=== PATIENT | male | born 1980 | race Caucasian/White ===

== ENCOUNTER 2017-07-18 01:39 | Emergency (ER) | payer OTHER ==
[~2017-07-18] VITALS: Ht 182.9 cm; Wt 83.9 kg
--- NOTE | 2017-07-18 02:15 | NUR ---
to bed 3 ambulatory c/o abdominal pain with n/v/d x6 hrs. pt aaox4 no acute distress noted, resp even and unlabored. er md at bedside to eval pt with orders received.
[2017-07-18] MEDS ORDERED: ONDANSETRON HCL/PF 4 MG/2 ML VIAL IVP ONE (02:30)
[2017-07-18] MEDS ORDERED: ONDANSETRON HCL/PF 4 MG/2 ML VIAL ONE (02:32)
--- NOTE | 2017-07-18 02:36 | NUR ---
rn at bedside to medicate pt.
[2017-07-18 02:37] LABS: BASOPHILS # (AUTO) 0.1 /CMM (0.0-0.2); BASOPHILS % (AUTO) 1.2 % (0.0-2.0); EOSINOPHILS % (AUTO) 0.3 % (0.0-6.0); HEMATOCRIT 35 % (39-51); HEMOGLOBIN 11.2 g/dL (13.5-17.5); LYMPHOCYTES # (AUTO) 1.9 /CMM (0.8-4.8); LYMPHOCYTES % (AUTO) 22.6 % (20.0-44.0); MEAN CORPUSCULAR HEMOGLOBIN 25 PG (26.0-33.0); MEAN CORPUSCULAR HGB CONC 32 g/dl (31.0-36.0); MEAN CORPUSCULAR VOLUME 78 fL (80-96); MONOCYTES # (AUTO) 0.9 /CMM (0.1-1.30); NEUTROPHILS # (AUTO) 5.6 /CMM (1.8-8.9); NEUTROPHILS % (AUTO) 64.9 % (43.0-81.0); PLATELET COUNT (AUTO) 333 /CMM (150-450); RDW COEFFICIENT OF VARIATION 20.9 (11.5-15.0); RED BLOOD CELL COUNT(AUTO) 4.47 MIL/uL (4.5-6.0); WHITE BLOOD COUNT (AUTO) 8.6 K/uL (4.3-11.0)
[2017-07-18] MEDS ORDERED: METOCLOPRAMIDE HCL 10 MG/2 ML VIAL ONE (02:47)
--- NOTE | 2017-07-18 02:47 | NUR ---
pt still c/o nausea, er md made aware with orders received.
[2017-07-18 02:48] LABS: CALCIUM, SERUM 9.4 mg/dL (8.5-10.1); POTASSIUM 3.2 mmol/L (3.5-5.1)
--- NOTE | 2017-07-18 02:48 | NUR ---
rn at bedside to medicate pt.
--- NOTE | 2017-07-18 02:50 | NUR ---
pt transported to radiology for ct abd/pelvis.
[2017-07-18 02:53] LABS: ALBUMIN 4.7 g/dL (3.4-5.0); BILIRUBIN,DIRECT 0.2 mg/dL (0.0-0.2); BILIRUBIN,TOTAL 0.7 mg/dL (0.2-1.0); TOTAL PROTEIN, SERUM 9.7 g/dL (6.4-8.2)
[2017-07-18] MEDS ORDERED: METOCLOPRAMIDE HCL 10 MG/2 ML VIAL IV ONE (03:00)
[2017-07-18] MEDS ORDERED: POTASSIUM CL. PREMIX PERIPHER. 50 ML IV SCH (03:00)
[2017-07-18] MEDS ORDERED: IV NS 0.9% 1,000 ML BAG IV ONE (03:00)
[2017-07-18] MEDS ORDERED: LORAZEPAM INJ 2 MG/ML VIAL ONE (03:27)
[2017-07-18] MEDS ORDERED: LIDOCAINE VISCOUS 2% UD 15 ML UDC ONE (03:27)
[2017-07-18] MEDS ORDERED: ONDANSETRON HCL/PF - ER 4 MG/2 ML VIAL IV ONE (04:00)
[2017-07-18] MEDS ORDERED: LORAZEPAM INJ 2 MG/ML VIAL IV ONE (04:00)
[2017-07-18] MEDS ORDERED: POTASSIUM CHLORIDE 20 MEQ TAB.PRT.SR PO ONE (04:00)
[2017-07-18 05:06] VITALS: BP 160/106
--- NOTE | 2017-07-18 05:06 | NUR ---
Patient discharged to home in stable condition. Written and verbal after care instructions given. Patient verbalizes understanding of instruction.IV removed. Catheter intact and site benign. Pressure and 4x4 applied to site. No bleeding noted. pt ambulatory with a steady gait VITAL SIGNS WITHIN NORMAL LIMITS.
== END 2017-07-18 05:06 | disposition home or self-care (01) ==
LOC: ER 01:42
DX: R10.84 Generalized abdominal pain (principal); D64.9 Anemia, unspecified; E87.6 Hypokalemia; F10.10 Alcohol abuse, uncomplicated; F17.210 Nicotine dependence, cigarettes, uncomplicated; F31.9 Bipolar disorder, unspecified; I10 Essential (primary) hypertension; K59.00 Constipation, unspecified; K85.90 Acute pancreatitis without necrosis or infection, unspecified
CPT/HCPCS: 36415; 74176; 80048; 80076; 83690; 85025; 86850; 96361; 96374; 96375; 99285; A4606; G0480; J2060; J2405 ×2; J2765; J7030; Z7610

== ENCOUNTER 2017-07-18 15:00 | Emergency (ER) | payer OTHER ==
[~2017-07-18] VITALS: Ht 182.9 cm; Wt 83.9 kg
[2017-07-18] MEDS ORDERED: METOCLOPRAMIDE HCL 10 MG/2 ML VIAL IV ONE (16:30)
[2017-07-18] MEDS ORDERED: FAMOTIDINE/PF INJ 20 MG/2 ML VIAL IV ONE ×2 (16:30→16:49)
[2017-07-18] MEDS ORDERED: IV NS 0.9% 1,000 ML BAG IV ONE ×2 (16:30→17:30)
[2017-07-18] MEDS ORDERED: METOCLOPRAMIDE HCL 10 MG/2 ML VIAL ONE (16:49)
[2017-07-18 17:02] LABS: ALBUMIN 4.4 g/dL (3.4-5.0); BILIRUBIN,DIRECT 0.2 mg/dL (0.0-0.2); BILIRUBIN,TOTAL 1.2 mg/dL (0.2-1.0); CALCIUM, SERUM 9.9 mg/dL (8.5-10.1); CREATININE 0.9 mg/dL (0.6-1.3); HEMATOCRIT 33 % (39-51); HEMOGLOBIN 10.6 g/dL (13.5-17.5); MEAN CORPUSCULAR VOLUME 78 fL (80-96); POTASSIUM 3.4 mmol/L (3.5-5.1); RED BLOOD CELL COUNT(AUTO) 4.18 MIL/uL (4.5-6.0); TOTAL PROTEIN, SERUM 9.2 g/dL (6.4-8.2); WHITE BLOOD COUNT (AUTO) 7.3 K/uL (4.3-11.0)
[2017-07-18 17:03] LABS: BASOPHILS # (AUTO) 0.3 /CMM (0.0-0.2); BASOPHILS % (AUTO) 4.6 % (0.0-2.0); EOSINOPHILS % (AUTO) 0.2 % (0.0-6.0); LYMPHOCYTES % (AUTO) 13.8 % (20.0-44.0); MEAN CORPUSCULAR HEMOGLOBIN 26 PG (26.0-33.0); MEAN CORPUSCULAR HGB CONC 33 g/dl (31.0-36.0); MONOCYTES # (AUTO) 1.2 /CMM (0.1-1.30); NEUTROPHILS # (AUTO) 4.8 /CMM (1.8-8.9); NEUTROPHILS % (AUTO) 64.4 % (43.0-81.0); PLATELET COUNT (AUTO) 155 /CMM (150-450); RDW COEFFICIENT OF VARIATION 19.5 (11.5-15.0)
[2017-07-18 17:55] LABS: EOSINOPHILS % (MANUAL) 1 % (0-4); LYMPHOCYTES % (MANUAL) 13 % (16-48); MONOCYTES % (MANUAL) 6 % (0-11.0); NEUTROPHILS % (MANUAL) 80 (42-76)
[2017-07-18 18:10] VITALS: BP 124/62
[2017-07-18] MEDS ORDERED: PROMETHAZINE HCL 25 MG/ML AMPUL ONE (18:16)
== END 2017-07-18 18:11 | disposition home or self-care (01) ==
LOC: ER 15:07
DX: R11.2 Nausea with vomiting, unspecified (principal); F17.210 Nicotine dependence, cigarettes, uncomplicated; F31.9 Bipolar disorder, unspecified; I10 Essential (primary) hypertension
CPT/HCPCS: 36415; 80048; 80076; 83690; 85025; 96361; 96374; 96375; 99284; 99406; A4606; J2550; J2765; J3490; J7030 ×2; Z7610

== ENCOUNTER 2017-07-26 06:11 | Emergency (ER) | payer OTHER ==
[~2017-07-26] VITALS: Ht 182.9 cm; Wt 72.6 kg
--- NOTE | 2017-07-26 06:15 | NUR ---
TO BED 2 BIB PARAMEDICS C/O ABD PAIN S/P DRINKING ALCOHOL. PT AAOX4 NO ACUTE DISTRESS NOTED, RESP EVEN AND UNLABORED. PENDING ER MD MARIE.
[2017-07-26] MEDS ORDERED: ONDANSETRON HCL/PF 4 MG/2 ML VIAL IVP ONE (06:30)
[2017-07-26] MEDS ORDERED: Folic acid 1 MG in IV D5W 50 ML IV SCH (06:30)
[2017-07-26] MEDS ORDERED: Thiamine 100 MG in IV D5W 50 ML IV SCH (06:30)
[2017-07-26] MEDS ORDERED: MISCELLANEOUS MED 1 EA EA XX ONE (06:30)
[2017-07-26] MEDS ORDERED: FAMOTIDINE/PF INJ 20 MG/2 ML VIAL IV ONE ×2 (06:30→07:08)
[2017-07-26] MEDS ORDERED: IV NS 0.9% 1,000 ML BAG IV ONE (06:30)
--- NOTE | 2017-07-26 06:50 | NUR ---
HEELER MACHINE AT BEDSIDE FOR BLOOD DRAW.
[2017-07-26] MEDS ORDERED: ONDANSETRON HCL/PF 4 MG/2 ML VIAL ONE (07:08)
--- NOTE | 2017-07-26 07:09 | NUR ---
RN AT BEDSIDE TO MEDICATE PT.
--- NOTE | 2017-07-26 07:19 | NUR ---
REPORT GIVEN TO AM SHIFT RK MALDONADO.
[2017-07-26 07:47] LABS: BASOPHILS # (AUTO) 0.1 /CMM (0.0-0.2); BASOPHILS % (AUTO) 0.8 % (0.0-2.0); EOSINOPHILS % (AUTO) 0.2 % (0.0-6.0); HEMATOCRIT 35 % (39-51); HEMOGLOBIN 11.2 g/dL (13.5-17.5); LYMPHOCYTES # (AUTO) 1.8 /CMM (0.8-4.8); LYMPHOCYTES % (AUTO) 28.6 % (20.0-44.0); MEAN CORPUSCULAR HEMOGLOBIN 25 PG (26.0-33.0); MEAN CORPUSCULAR HGB CONC 33 g/dl (31.0-36.0); MEAN CORPUSCULAR VOLUME 77 fL (80-96); MONOCYTES # (AUTO) 0.7 /CMM (0.1-1.30); MONOCYTES % (AUTO) 10.9 % (2.0-12.0); NEUTROPHILS # (AUTO) 3.8 /CMM (1.8-8.9); NEUTROPHILS % (AUTO) 59.5 % (43.0-81.0); PLATELET COUNT (AUTO) 290 /CMM (150-450); RED BLOOD CELL COUNT(AUTO) 4.49 MIL/uL (4.5-6.0); WHITE BLOOD COUNT (AUTO) 6.4 K/uL (4.3-11.0)
[2017-07-26 07:54] LABS: CALCIUM, SERUM 8.3 mg/dL (8.5-10.1); CARBON DIOXIDE 21 mmol/L (21-32); CHLORIDE 101 mmol/L (98-107); CREATININE 0.9 mg/dL (0.6-1.3); GLUCOSE 107 mg/dL (74-106); POTASSIUM 3.3 mmol/L (3.5-5.1); SODIUM SERUM 141 mmol/L (136-145); UREA NITROGEN, BLOOD 9 mg/dL (7-18)
[2017-07-26 07:59] LABS: ALANINE AMINOTRANSFERASE 73 U/L (12-78); ALBUMIN 3.8 g/dL (3.4-5.0); ALKALINE PHOSPHATASE 117 U/L (46-116); ASPARTATE AMINOTRANSFERASE 122 U/L (15-37); BILIRUBIN,TOTAL 0.4 mg/dL (0.2-1.0); TOTAL PROTEIN, SERUM 8.6 g/dL (6.4-8.2)
[2017-07-26 08:03] LABS: TROPONIN I < 0.017 ng/mL (0.00-0.056)
[2017-07-26 08:06] LABS: INR 1.04 (0.87-1.13); PROTHROMBIN TIME 10.8 SECS (9.5-12.7)
--- NOTE | 2017-07-26 09:08 | NUR ---
VERBAL ORDER RECEIVED FROM DR. DHALIWAL FOR ZOFRAN 4MG IVP. WILL PUT ORDERS ONCE DONE WITH PROCEDURE.
--- NOTE | 2017-07-26 12:40 | NUR ---
IV removed. Catheter intact and site benign. Pressure and 4x4 applied to site. No bleeding noted.
--- NOTE | 2017-07-26 12:53 | NUR ---
Patient discharged to home in stable condition. Written and verbal after care instructions given. Patient verbalizes understanding of instruction.
[2017-07-26 12:54] VITALS: BP 127/91
== END 2017-07-26 13:00 | disposition home or self-care (01) ==
LOC: ER 06:14
DX: R07.89 Other chest pain (principal); F10.129 Alcohol abuse with intoxication, unspecified; I10 Essential (primary) hypertension; F17.210 Nicotine dependence, cigarettes, uncomplicated; F31.9 Bipolar disorder, unspecified
CPT/HCPCS: 36415; 71010; 80048; 80076; 84484 ×2; 85025; 85730; 93005; 96365; 96368; 96375; 99285; A4606; G0480; J2405; J3411; J3490 ×2; J7060 ×2; Z7610

== ENCOUNTER 2017-07-27 23:22 | Emergency (ER) | payer OTHER ==
[~2017-07-27] VITALS: Ht 182.9 cm; Wt 83.9 kg
[2017-07-27 23:30] VITALS: BP 125/91
[2017-07-27] MEDS ORDERED: METOCLOPRAMIDE HCL 10 MG TABLET ONE (23:43)
[2017-07-28] MEDS ORDERED: METOCLOPRAMIDE HCL 10 MG TABLET PO ONE
--- NOTE | 2017-07-28 00:27 | NUR ---
Dr Briones at bedside talking to patient. Then patient said he "wants to leave now". Patient left facity with steady gait, vss.
== END 2017-07-28 00:29 | disposition home or self-care (01) ==
LOC: ER 23:22
DX: R10.84 Generalized abdominal pain (principal); I10 Essential (primary) hypertension; F31.9 Bipolar disorder, unspecified; F17.210 Nicotine dependence, cigarettes, uncomplicated; F10.10 Alcohol abuse, uncomplicated
CPT/HCPCS: 74000; 99283; A4606; J8597; Z7610

== ENCOUNTER 2018-01-14 07:07 | Inpatient (IN) | payer OTHER ==
[~2018-01-14] VITALS: Ht 182.9 cm; Wt 83.9 kg
--- NOTE | 2018-01-14 07:08 | NUR ---
BB 78 FROM STREETS: ABD PAIN X 2 DAYS. ETOH+
[2018-01-14] MEDS ORDERED: FAMOTIDINE/PF INJ 20 MG/2 ML VIAL IV ONE ×2 (07:21→07:49)
[2018-01-14] MEDS ORDERED: ONDANSETRON HCL/PF 4 MG/2 ML VIAL ONE ×2 (07:21→08:16)
[2018-01-14] MEDS ORDERED: IV NS 0.9% 1,000 ML BAG IV ONE (07:30)
[2018-01-14] MEDS ORDERED: ONDANSETRON HCL/PF 4 MG/2 ML VIAL IVP ONE ×2 (07:30→08:30)
[2018-01-14] MEDS ORDERED: FAMOTIDINE/PF INJ 40 MG in IV D5W 50 ML IV ONE (07:30)
--- NOTE | 2018-01-14 07:40 | NUR ---
RT WRIST #20 IV ACCESS. BLOOD SAMPLE COLLECTED SENT TO LAB
[2018-01-14 07:58] LABS: BASOPHILS # (AUTO) 0.1 /CMM (0.0-0.2); BASOPHILS % (AUTO) 1.1 % (0.0-2.0); EOSINOPHILS % (AUTO) 0.5 % (0.0-6.0); HEMATOCRIT 25 % (39-51); HEMOGLOBIN 8.3 g/dL (13.5-17.5); LYMPHOCYTES # (AUTO) 1.4 /CMM (0.8-4.8); MEAN CORPUSCULAR HGB CONC 33 g/dl (31.0-36.0); MEAN CORPUSCULAR VOLUME 74 fL (80-96); MONOCYTES # (AUTO) 0.7 /CMM (0.1-1.30); MONOCYTES % (AUTO) 11.7 % (2.0-12.0); NEUTROPHILS # (AUTO) 3.4 /CMM (1.8-8.9); NEUTROPHILS % (AUTO) 61.7 % (43.0-81.0); PLATELET COUNT (AUTO) 494 /CMM (150-450); RDW COEFFICIENT OF VARIATION 23.5 (11.5-15.0); RED BLOOD CELL COUNT(AUTO) 3.42 MIL/uL (4.5-6.0); WHITE BLOOD COUNT (AUTO) 5.6 K/uL (4.3-11.0)
[2018-01-14 08:07] LABS: CALCIUM, SERUM 8.5 mg/dL (8.5-10.1); CREATININE 0.9 mg/dL (0.6-1.3); POTASSIUM 3.2 mmol/L (3.5-5.1)
[2018-01-14 08:13] LABS: ALBUMIN 3.3 g/dL (3.4-5.0); BILIRUBIN,DIRECT 0.3 mg/dL (0.0-0.2); BILIRUBIN,TOTAL 0.9 mg/dL (0.2-1.0); TOTAL PROTEIN, SERUM 8.5 g/dL (6.4-8.2)
[2018-01-14 08:36] LABS: LYMPHOCYTES % (MANUAL) 23 % (16-48); MONOCYTES % (MANUAL) 9 % (0-11.0); NEUTROPHILS % (MANUAL) 68 (42-76)
[2018-01-14 08:39] LABS: INR 1.1 (0.87-1.13)
[2018-01-14] MEDS ORDERED: LITH600C PO (09:32)
[2018-01-14] MEDS ORDERED: QUET400T PO (09:32)
--- NOTE | 2018-01-14 09:33 | NUR ---
STOOL SAMPLE COLLECTED SENT TO LAB
[2018-01-14 09:56] LABS: OCCULT BLOOD STOOL NEGATIVE (NEGATIVE)
[2018-01-14] MEDS ORDERED: ACETAMINOPHEN 325 MG TABLET PO PRN (10:30)
[2018-01-14] MEDS ORDERED: MAGNESIUM HYDROXIDE 30 ML UDC PO PRN (10:30)
[2018-01-14] MEDS ORDERED: Z GUARD REMEDY 2 OZ OINT TP PRN (10:30)
[2018-01-14] MEDS ORDERED: MAG HYDROX/AL HYDROX/SIMETH 30 ML UDC PO PRN (10:30)
[2018-01-14] MEDS ORDERED: LORAZEPAM 1 MG TABLET PO ONE (10:30)
[2018-01-14] MEDS ORDERED: LORAZEPAM 1 MG TABLET ONE (10:42)
[2018-01-14] MEDS ORDERED: POTASSIUM CHLORIDE 20 MEQ TAB.PRT.SR PO ONE ×3 (10:42→11:00)
--- NOTE | 2018-01-14 10:53 | NUR ---
GAVE REPORT TO VANESSA BECKMAN TELE GI BLEED. DANYA LEA ADMITTING. TRANSFER VIA ACLS PROTOCOL
--- NOTE | 2018-01-14 11:14 | NUR ---
ENDORSE TO SANAA CALL FOR PSYCHIATRIST EVAL AND MRSA SURVEILLANCE
[2018-01-14 11:45] VITALS: BP 140/77
--- NOTE | 2018-01-14 11:51 | NUR ---
EMPLOYMENT SUPERVISOR: ADMITTING NOTE PT ADMITTED WITH DX OF ABD PAIN. REPORT GIVEN BY CHEPE. PT A/OX4. ON TELE MONITORING SR AT 96 BPM. NO DISTRESS NOTED. NO SOB NOTED. NO PAIN NOTED. SLIGHTLY ANXIOUS DUE TO ALCOHOL WITHDRAWALS. CONTINENT. ADULATORY WITH OUT ASSIST SKIN INTACT. NPO EXCEPT MEDS. OCCULT STOOL NEGATIVE. R FA #[id number] RUNNING NS AT 75ML/HR. SITE CLEAR AND PATENT. NO REDNESS OR BLEEDING NOTED. ALL BELONGINGS ACCOUNTED FOR. RESTING COMFORTABLY IN BED. CALL LIGHT WITHIN REACH.
[2018-01-14] MEDS: PANTOPRAZOLE 40 MG VIAL IV SCH ×2 (12:02→16:51)
[2018-01-14] MEDS: LORAZEPAM INJ 2 MG/ML VIAL IV PRN ×2 (12:02→18:06)
[2018-01-14] MEDS: IV NS 0.9% 1,000 ML IV PRN (12:04)
--- NOTE | 2018-01-14 14:44 | NUR ---
PT STATED THAT HE LIVES WITH HIS DAD AND IS NOT HOMELESS. HIS FATHER IS SUPPOSE TO VISIT HIM IN THE HOSPITAL SOON. REMOVED IV DUE TO BEING ANXIOUS. IV SITE CLEANED AND REPLACED. ATIVAN GIVEN ORDERED.
--- NOTE | 2018-01-14 16:04 | NUR ---
PT HAVING LOOSE STOOLS. NOT DARK IN COLOR. NO BLEEDING NOTED. PREVIOUS (-) OCCULT BLOOD RESULT. SENT STOOL FOR C.DIFF CHECK. PT ADMITTED WITH LOOSE STOOLS.
[2018-01-14] MEDS ORDERED: MAGNESIUM CITRATE 296 ML BOTTLE PO ONE (16:30)
[2018-01-14] MEDS ORDERED: PEG 3350/NA SULF,BICARB,CL/KCL 4,000 ML BOTTLE PO ONE (16:30)
[2018-01-14] MEDS ORDERED: NA PHOS,M-B/NA PHOS,DI-BA 1 EA ENEMA RC PRN ×2 (16:30→16:43)
[2018-01-14] MEDS: LITHIUM CARBONATE (300 MG CAP) 300 MG CAPSULE PO SCH (16:51)
[2018-01-14 17:21] LABS: IRON, SERUM 53 ug/dl (50-175); TOTAL IRON BINDING CAPACITY 445 ug/dl (250-450)
--- NOTE | 2018-01-14 17:53 | NUR ---
PER HAND ZIPPER TRIMMER ELIZABETH GI TO PLACE ORDER FOR STAT H/H IF BLOOD IN STOOL NOTED, OR ANY BRIGHT OR DARK COLORED STOOL NOTED. STANDING ORDER FOR BLOOD IN PLACE.
--- NOTE | 2018-01-14 18:25 | NUR ---
MORTICIAN SUPPLIES SALES REPRESENTATIVE: CLOSING NOTE PT TOOK ALL MEDICATIONS ON TIME. NO ADVERSE REACTIONS NOTED. NO SOB NOTED. NO PAIN NOTED. SLIGHTLY ANXIOUS DUE TO ALCOHOL WITHDRAWALS. ATIVAN GIVEN PER MD ORDER PRN. A/OX4. ON TELE MONITORING PACING AT SINUS TACHY AT 110 BPM. SKIN INTACT. AMBULATORY. STOOL COLLECTED FOR POSSIBLE C.DIFF DUE TO LOOSE STOOLS ON ADMISSION. OCCULT BLOOD NEGATIVE. NO BRIGHT COLORED STOOLS, NO DARK COLORED STOOLS, NO ACTIVE BLEEDING NOTED. NPO EXCEPT MEDS. SCHEDULED FOR EGD AND COLONOSCOPY IN AM PER MURAL PAINTER ELIZABETH ORDERS. CONSENT SIGNED AND PLACED IN CHART. PREP STARTED ORDERED. R FA #[id number] RUNNING NS AT 75ML/HR. SITE CLEAR AND PATENT. NO REDNESS OR BLEEDING NOTED. PT DOES NOT HAVE ANY SI WHEN ASKED. MOSTLY CALM AND COOPERATIVE. RESTING COMFORTABLY IN BED. CALL LIGHT WITHIN REACH.
[2018-01-14 20:00] VITALS: BP 141/91
--- NOTE | 2018-01-14 20:00 | NUR ---
recieved mr. rock alert and orientated x4. thought process slow. explained to him the importance of drinking the golytlly and what to expect. BSC at the bedside and explained to him to use the commode because I need to see each stool. stool seen in the commode at this time is brown and diarrhea.
[2018-01-14] MEDS: ONDANSETRON HCL/PF 4 MG/2 ML VIAL IVP PRN (20:11)
[2018-01-14 20:33] VITALS: BP 141/91
[2018-01-14 20:37] VITALS: BP 141/91
[2018-01-14] MEDS: LORAZEPAM INJ 2 MG/ML VIAL IV SCH (21:45)
[2018-01-15] VITALS: BP 129/78
[2018-01-15] MEDS: LORAZEPAM INJ 2 MG/ML VIAL IV SCH ×5 (01:43→17:56)
[2018-01-15] MEDS: IV NS 0.9% 1,000 ML IV PRN (01:46)
[2018-01-15 04:00] VITALS: BP 134/75
--- NOTE | 2018-01-15 04:50 | NUR ---
MR. MURPHY IS ALERT AND ORIENTATED, COGNITIVE HE IS SLOW THINKING. HE IS COOPERATIVE. REMAINS NPO FOR SCHEDULED 01/15 0800 AM COLONOSCOPY. EXPLAINED TO HIM MULTIPLE TIMES WHAT TO EXPECT, HE IS FORGETFUL. STOOL YELLOW NO LUMPS OF STOOL SEEN...CLEAR FOR COLONSCOPY. INCREASE IN HIS TIME FOR THE ATIVAN 1 MG TO Q4 HRS AROUNG THE CLOCK, NOED THIS IS EFFECTIVE FOR HIS LEVEL OF ANXIETY CONTROL.
[2018-01-15 05:04] VITALS: BP 134/75
[2018-01-15 05:17] VITALS: BP 134/75
[2018-01-15] MEDS: ONDANSETRON HCL/PF 4 MG/2 ML VIAL IVP PRN ×2 (05:55→14:13)
--- NOTE | 2018-01-15 07:30 | NUR ---
RN OPENING NOTES RECEIVED PT. PT IS STABLE AND SLEEPING IN BED. NO S/S OF RESP DISTRESS OR SOB. PT IS SCHEDULED FOR EGD/COLONOSCOPY IN AM. CONSENT AND CHECKLIST COMPLETED. SAFETY MEASURES IN PLACE, CALL LIGHT WITHIN REACH. WILL CONTINUE TO MONITOR.
[2018-01-15] MEDS ORDERED: SUCCINYLCHOLINE CHLORIDE 20 MG/ML VIAL ONE (08:16)
[2018-01-15 08:40] LABS: EOSINOPHILS % (AUTO) 2.5 % (0.0-6.0); HEMATOCRIT 24 % (39-51); HEMOGLOBIN 7.9 g/dL (13.5-17.5); LYMPHOCYTES # (AUTO) 0.9 /CMM (0.8-4.8); LYMPHOCYTES % (AUTO) 20.3 % (20.0-44.0); MEAN CORPUSCULAR HGB CONC 33 g/dl (31.0-36.0); MEAN CORPUSCULAR VOLUME 75 fL (80-96); MONOCYTES # (AUTO) 0.5 /CMM (0.1-1.30); MONOCYTES % (AUTO) 12.8 % (2.0-12.0); NEUTROPHILS # (AUTO) 2.7 /CMM (1.8-8.9); NEUTROPHILS % (AUTO) 63.4 % (43.0-81.0); PLATELET COUNT (AUTO) 393 /CMM (150-450); RDW COEFFICIENT OF VARIATION 23.5 (11.5-15.0); RED BLOOD CELL COUNT(AUTO) 3.19 MIL/uL (4.5-6.0); WHITE BLOOD COUNT (AUTO) 4.3 K/uL (4.3-11.0)
[2018-01-15 08:41] LABS: ALBUMIN 3.2 g/dL (3.4-5.0); BILIRUBIN,DIRECT 0.3 mg/dL (0.0-0.2); BILIRUBIN,TOTAL 1.2 mg/dL (0.2-1.0); CALCIUM, SERUM 8.8 mg/dL (8.5-10.1); CREATININE 0.9 mg/dL (0.6-1.3); MAGNESIUM 1.7 mg/dL (1.8-2.4); PHOSPHORUS 3.4 mg/dL (2.5-4.9); POTASSIUM 3.4 mmol/L (3.5-5.1); TOTAL PROTEIN, SERUM 7.9 g/dL (6.4-8.2)
[2018-01-15 08:51] LABS: THYROID STIMULATING HORMONE 2.403 uIU/mL (0.358-3.74)
[2018-01-15] MEDS ORDERED: QUETIAPINE FUMARATE 100 MG TABLET PO SCH (09:00)
[2018-01-15] MEDS ORDERED: THIAMINE HCL 100 MG TABLET PO SCH (09:00)
[2018-01-15] MEDS ORDERED: FOLIC ACID 1 MG TABLET PO SCH (09:00)
[2018-01-15] MEDS: PANTOPRAZOLE 40 MG VIAL IV SCH (09:31)
[2018-01-15] MEDS: LITHIUM CARBONATE (300 MG CAP) 300 MG CAPSULE PO SCH ×2 (09:31→17:56)
[2018-01-15] MEDS ORDERED: POTASSIUM CHLORIDE 20 MEQ TAB.PRT.SR PO ONE (11:00)
--- NOTE | 2018-01-15 11:00 | NUR ---
RN NOTES PT MOVED TO ROOM 307-2.
[2018-01-15] MEDS: Magnesium 1GM/D5W 100ML PREMIX 100 ML IV SCH ×2 (11:41→12:58)
--- NOTE | 2018-01-15 12:05 | NUR ---
Social service consult requested by GLEN Comer for drug use and possible homelessness. Pt. is a 37 year old male who was admitted to [facility] for GI bleed. SW met with pt. bedside. Pt. is alert and oriented x 3. Pt. states he lives with his family located at [address] [place] [address] in [facility] . Pt. has a flat blunted affect. Pt. states he has a girlfriend Chhaya Cabrera. Pt. has a psychiatric diagnosis but is unable to specify what diagnoses/ diagnosis he has. Pt. does take [place] and Prozac. Pt. drinks alcohol. Pt. alcohol of choice is Vodka and he drinks a fifth of vodka daily. Pt. denies drug use, however H&P states that pt. has a history of heroin use. Pt. denies suicidal and homicidal ideations and visual and auditory hallucinations at this time. AJIT requested for RK Haddad to place a psychiatric consult for the patient. No other social service needs are required at this time. SW is available if needed.
--- NOTE | 2018-01-15 15:00 | NUR ---
RN NOTES PT HAS REMOVED IV TWICE, MAGNESIUM REPLACEMENT NOT COMPLETED. WILL REINSERT.
[2018-01-15 16:00] VITALS: BP 140/92
[2018-01-15] MEDS ORDERED: HYDROCODONE/APAP 5/325MG 1 EACH TABLET PO PRN (16:00)
[2018-01-15] MEDS ORDERED: FERROUS SULFATE (325 MG) 325 MG/TAB TABLET PO SCH (17:00)
--- NOTE | 2018-01-15 18:00 | NUR ---
DISCHARGE NOTE PT LEFT HOSPITAL AMA. REFUSED ALL EXITCARE. IV ACCESS REMOVED. PT INFORMED OF POTENTIAL RISKS OF LEAVING AMA HOWEVER INSISTS ON LEAVING. AMA PAPERWORK SIGNED AND PLACED IN CHART.
[2018-01-16] MEDS ORDERED: PANTOPRAZOLE 40 MG TABLET.DR PO SCH (07:30)
== END 2018-01-15 18:25 | disposition left against medical advice (07) | DRG 241 ==
LOC: ER 07:09 → TELE 10:53 → MED 01-15 11:06
PROVIDERS: ADMIT Nurse Practitioner Acute Care; ATTEND Nurse Practitioner Acute Care
PROC: 0DB68ZX Excision of Stomach, Via Natural or Artificial Opening Endoscopic, Diagnostic (ICD-10-PCS; principal; 2018-01-15 08:00)
PROC: 0DJD8ZZ Inspection of Lower Intestinal Tract, Via Natural or Artificial Opening Endoscopic (ICD-10-PCS; principal; 2018-01-15 08:00)
PROC: 0DB58ZX Excision of Esophagus, Via Natural or Artificial Opening Endoscopic, Diagnostic (ICD-10-PCS; principal; 2018-01-15 08:00)
DX: K29.70 Gastritis, unspecified, without bleeding (principal); E46 Unspecified protein-calorie malnutrition; K86.1 Other chronic pancreatitis; K70.10 Alcoholic hepatitis without ascites; E83.42 Hypomagnesemia; D62 Acute posthemorrhagic anemia; K70.9 Alcoholic liver disease, unspecified; D50.9 Iron deficiency anemia, unspecified; I10 Essential (primary) hypertension; F17.210 Nicotine dependence, cigarettes, uncomplicated; E87.6 Hypokalemia; F31.9 Bipolar disorder, unspecified; F11.90 Opioid use, unspecified, uncomplicated; Z91.5 Personal history of self-harm; Z79.899 Other long term (current) drug therapy; D47.3 Essential (hemorrhagic) thrombocythemia; F10.239 Alcohol dependence with withdrawal, unspecified; Y90.9 Presence of alcohol in blood, level not specified; K64.8 Other hemorrhoids; K57.30 Diverticulosis of large intestine without perforation or abscess without bleeding; K44.9 Diaphragmatic hernia without obstruction or gangrene; K20.9 Esophagitis, unspecified; Z68.25 Body mass index [BMI] 25.0-25.9, adult
CPT/HCPCS: 36415; 71045-TC; 80048-TC; 80061-TC; 80074; 80076-TC; 82272-TC; 82728-TC; 83540-TC; 83690-TC; 83735-TC; 84100-TC; 84443-TC; 85025-TC; 85730-TC; 86850-TC; 87081-TC; 88305-TC; 88313-TC; 88342; A4606; C9113; J0330; J2060; J2405; J2704; J3475; J3490; J7030; J7060; Z7610

== ENCOUNTER 2018-01-17 08:49 | Inpatient (IN) | payer OTHER ==
[2018-01-17] VITALS (9 sets, daily range): BP systolic 124–158; BP diastolic 77–105
[~2018-01-17] VITALS: Ht 177.8 cm; Wt 81.6 kg
[~2018-01-17 08:49] MED LIST: LITH600C PO; QUET400T PO
--- NOTE | 2018-01-17 08:49 | NUR ---
BIB RA C/O GENERALIZED WEAKNESS AND ABDOMINAL PAIN. NAD NOTED. PT AAO X4, AMB WITH STEADY GAIT. RR EVEN AND UNLABORED. PT REPORTS BEING TO ER FOR SAME ISSUE. STATES DRINKS ALCOHOL. PENDING MD MARIE.
[2018-01-17] MEDS ORDERED: ONDANSETRON HCL/PF 4 MG/2 ML VIAL ONE (09:16)
[2018-01-17] MEDS ORDERED: FAMOTIDINE/PF INJ 20 MG/2 ML VIAL IV ONE ×2 (09:16→09:30)
[2018-01-17] MEDS ORDERED: ONDANSETRON HCL/PF 4 MG/2 ML VIAL IVP ONE (09:30)
[2018-01-17] MEDS ORDERED: IV NS 0.9% 1,000 ML BAG IV ONE (09:30)
[2018-01-17 09:40] LABS: BASOPHILS % (AUTO) 0.6 % (0.0-2.0); EOSINOPHILS % (AUTO) 5.2 % (0.0-6.0); HEMATOCRIT 22 % (39-51); HEMOGLOBIN 7.2 g/dL (13.5-17.5); LYMPHOCYTES # (AUTO) 0.7 /CMM (0.8-4.8); LYMPHOCYTES % (AUTO) 12.7 % (20.0-44.0); MEAN CORPUSCULAR HGB CONC 32 g/dl (31.0-36.0); MEAN CORPUSCULAR VOLUME 75 fL (80-96); MONOCYTES # (AUTO) 0.8 /CMM (0.1-1.30); MONOCYTES % (AUTO) 15.3 % (2.0-12.0); NEUTROPHILS # (AUTO) 3.6 /CMM (1.8-8.9); NEUTROPHILS % (AUTO) 66.2 % (43.0-81.0); PLATELET COUNT (AUTO) 265 /CMM (150-450); RDW COEFFICIENT OF VARIATION 23.7 (11.5-15.0); RED BLOOD CELL COUNT(AUTO) 2.98 MIL/uL (4.5-6.0); WHITE BLOOD COUNT (AUTO) 5.4 K/uL (4.3-11.0)
--- NOTE | 2018-01-17 09:44 | NUR ---
URINE OBTAINED SENT TO LAB
[2018-01-17 09:50] LABS: CREATININE 0.8 mg/dL (0.6-1.3); POTASSIUM 3.2 mmol/L (3.5-5.1)
[2018-01-17 09:58] LABS: ALBUMIN 2.8 g/dL (3.4-5.0); BILIRUBIN,DIRECT 0.1 mg/dL (0.0-0.2); BILIRUBIN,TOTAL 0.4 mg/dL (0.2-1.0); TOTAL PROTEIN, SERUM 7.3 g/dL (6.4-8.2)
[2018-01-17 10:11] LABS: LYMPHOCYTES % (MANUAL) 11 % (16-48); NEUTROPHILS % (MANUAL) 73 (42-76)
[2018-01-17 10:12] LABS: EOSINOPHILS % (MANUAL) 3 % (0-4); MONOCYTES % (MANUAL) 13 % (0-11.0)
--- NOTE | 2018-01-17 10:36 | NUR ---
panel on-call paged
[2018-01-17 11:15] LABS: INR 1.06 (0.87-1.13)
--- NOTE | 2018-01-17 12:30 | NUR ---
RN NOTES: PATIENT ARRIVED TO UNIT STABLE. NONLABORED BREATHING NOTED ON ROOM AIR. NO SIGNS OF DISTRESS, PATIENT AOX3. IV SITE ON RIGHT WRIST GAUGE 20 WELL IV SITE ON RT AC 20 PATENT AND INTACT. PATIENT ON TELE MONITOR WITH SINUS TACHYCARDIA NOTED 107. WILL CONTINUE TO MONITOR BED IN LOWEST LOCKED POSITION. CALL LIGHT WITHIN REACH.
--- NOTE | 2018-01-17 12:40 | NUR ---
RN NOTES: NO SHARP OBJECTS AT BEDSIDE. TAWANNA GOMEZ
--- NOTE | 2018-01-17 12:40 | NUR ---
RN NOTES: NO SHARP OBJECTS AT BEDSIDE. PATIENT DENYING SUICIDAL AND HOMICIDAL IDEATIONS
--- NOTE | 2018-01-17 12:40 | NUR ---
RN NOTES: PATIENT REFUSING TO TALK ABOUT DRUG AND ALCOHOL USAGE, STATES THAT TOBACCO INTAKE IS LOW
[2018-01-17] MEDS ORDERED: IV NS 0.9% 1,000 ML IV PRN (12:59)
[2018-01-17] MEDS ORDERED: Z GUARD REMEDY 2 OZ OINT TP PRN (13:00)
[2018-01-17] MEDS ORDERED: ONDANSETRON HCL/PF 4 MG/2 ML VIAL IVP PRN (13:00)
[2018-01-17] MEDS ORDERED: ACETAMINOPHEN 325 MG TABLET PO PRN (13:00)
[2018-01-17 13:14] LABS: MAGNESIUM 1.4 mg/dL (1.8-2.4); PHOSPHORUS 1.6 mg/dL (2.5-4.9)
--- NOTE | 2018-01-17 14:59 | NUR ---
RN NOTES: BLOOD ADMINISTERED AT 1443 AT RATE OF 60ML/ HOUR. BP NOTED AT 130/74. HR OF 108. TEMPERATURE OF 99.0. SOP2 AT 98% AT ROOM AIR. REMAINED WITH PATIENT DURING INITIAL 15 MINS OF TRANSFUSION. NO SIGNS OF DISTRESS. PATIENT STABLE AND AFEBRILE. DENYING PAIN. NONLABORED BREATHING NOTED AT 1458: BP AT 137/85, HR OF 103, SPO2 OF 97% ON ROOM AIR WITH TEMP OF 98.7F- PATIENT DENYING ADVERSE EFFECTS. INCREASED RATE TO 75 ML/HOUR- WILL CONTINUE TO MONITOR
--- NOTE | 2018-01-17 15:03 | NUR ---
RN NOTES: SCANT BRIGHT RED COLOR NOTED IN STOOL. COLLECTED AND SENT TO LAB
[2018-01-17] MEDS ORDERED: NEUTRA PHOS 1 POWD.PACKET PO ONE (15:30)
--- NOTE | 2018-01-17 15:33 | NUR ---
RN NOTES: VS NOTED. BLOOD RATE INCREASED TO 100 ML/HOUR
[2018-01-17] MEDS: LORAZEPAM INJ 2 MG/ML VIAL IV PRN ×2 (15:53→20:42)
--- NOTE | 2018-01-17 15:58 | NUR ---
RN NOTES: PATIENT STATING FEELING ANXIOUS. ENCOURAGED TO EXPRESS EMOTIONS. NO HALLUCINATIONS NOTED. ATIVAN ADMINISTERED PER ORDERS
--- NOTE | 2018-01-17 16:05 | NUR ---
RN NOTES: VS NOTED. INCREASED BLOOD TRANSFUSION RATE TO 125 M//HOUR
[2018-01-17 16:19] LABS: OCCULT BLOOD STOOL NEGATIVE (NEGATIVE)
--- NOTE | 2018-01-17 17:00 | NUR ---
RN NOTES: INFILTRATION NOTED AT AC SITE, WITH BRUISING OF 4 CM BY 4 CM-- BRIGHT PURPLE. PATIENT REFUSING TO UTILIZE RIGHT WRIST IV SITE INTITIALLY. HOWEVER, AGREED. ICE PACK PROVIDED TO PATIENT
[2018-01-17] MEDS ORDERED: POTASSIUM CL. PREMIX PERIPHER. 50 ML IV SCH (18:00)
--- NOTE | 2018-01-17 18:10 | NUR ---
RN NOTES: BLOOD TRANSFUSION ENDED. VS NOTED. PATIENT STABLE. NONLABORED BREATHING NOTED ON ROOM AIR
[2018-01-17] MEDS ORDERED: POTASSIUM CHLORIDE 20 MEQ TAB.PRT.SR PO ONE (18:30)
[2018-01-17] MEDS: Magnesium 1GM/D5W 100ML PREMIX 100 ML IV SCH ×2 (18:52→20:36)
--- NOTE | 2018-01-17 19:07 | NUR ---
RN NOTES RECEIVE PT IN BED A/O X3 , NO S/S OF DISTRESS, STABLE, SAFETY MEASURES IN PLACE, CALL LIGHT WITHIN REACH, WILL CONTINUE TO MONITOR
--- NOTE | 2018-01-17 19:10 | NUR ---
RN NOTES: PATIENT RESTING IN BED. AOX3. PATIENT SINUS TACHYCARDIA 104. DENIES PAIN AT THE MOMENT. NO HALLUCINATIONS NOTED. SAFETY PRECAUTIONS IMPLEMENTED THROUGHOUT SHIFT. VISUAL CHECKS DONE BY STAFF EVERY 15 MINS. NO SHARP OBJECTS AT BEDSIDE. PATIENT DENYING SI AND DENYING HI. IV SITE ON RIGHT AC 20 AND IV SITE ON RIGHT WRIST GAUGE 20. INITIAL MAGNESIUM BAG HUNG, PRIMARY NS SET UP PER ORDERS. SECOND BAG GIVEN TO FÉLIX RN TO BE ADMINISTERED. NO SEIZURES NOTED DURING SHIFT. NO HALLUCINATIONS. PATIENT REMAINED PERRLA. NO DIFFICULTY SWALLOWING. TOLERATED DIET WELL. BED IN LOWEST LOCKED POSITION. CALL LIGHT WITHIN REACH. ENDORSED TO NEXT SHIFT
--- NOTE | 2018-01-17 21:42 | NUR ---
PT REMAINS CALM NOT IN DISTRESS VS STABLE
--- NOTE | 2018-01-17 22:00 | NUR ---
PT TRANSFERRED SAFELY TO 310-1 WITH NO INCIDENT
[2018-01-18] VITALS: BP 139/101
[2018-01-18] MEDS: LORAZEPAM INJ 2 MG/ML VIAL IV PRN (01:06)
[2018-01-18 04:00] VITALS: BP 153/103
--- NOTE | 2018-01-18 06:23 | NUR ---
FORGE SHOP SUPERVISOR OLIVIA PAGED HOSPITALIST PT HR 140'S PT ASLEEP AND CALM WILL RELAY TO MD AWAITING CALL BACK
--- NOTE | 2018-01-18 06:35 | NUR ---
MS RN NOTES PT ASLEEP COMFORTABLY IN BED AND EASILY AWAKEN SEMI FOWLERS POSITION TOLERATING ROOM AIR 98%, NOT IN RESPIRATORY DISTRESS. ATTACH TO TELE MONITOR ST 130'S HOSPITALIST CALLED BACK AND MADE AWARE LACY NORMAN FACULTY SUPPORT COORDINATOR ORDERED STAT EKG AND TROPONIN I. KEPT CLEAN AND DRY AND COMFORTABLE. NURSING CARE RENDERED. NEEDS ATTENDED AND ANTICIPATED. ON LOW BED TO ENSURE SAFETY, CALL LIGHT WITHIN REACH, WILL ENDORSE TO THE NEXT SHIFT CONTINUE PLAN OF CARE
--- NOTE | 2018-01-18 07:35 | NUR ---
MS RN OPENING NOTE PATIENT IS RESTING COMFORTABLY AT THIS TIME IN BED LOCKED IN LOWEST POSITION. NO FACIAL GRIMACING NOTED FOR PAIN. NO SOB OR DISTRESS NOTED. CALL LIGHT WITHIN REACH. SAFETY MEASURES IMPLEMENTED. ABLE TO COMMUNICATE NEEDS. AMBULATORY. PENDING LABS THIS MORNING. UPON VITAL SIGN ASSESSMENT NOTICED PATIENT HAD LOW 02, REASSESSED OXYGEN ON ROOM AIR STILL AT 87-88%, PUT 2.5L OF O2 ON AT O2 SATURATION AT 92% TOLERATING WELL. WILL CONTINUE TO MONITOR THROUGHOUT SHIFT
[2018-01-18 08:00] VITALS: BP_SYST 111; BP_SYST 134; BP_DIAS 103; BP_DIAS 57
[2018-01-18 08:15] LABS: HEMATOCRIT 29 % (39-51); HEMOGLOBIN 9.3 g/dL (13.5-17.5); MEAN CORPUSCULAR VOLUME 78 fL (80-96); RED BLOOD CELL COUNT(AUTO) 3.73 MIL/uL (4.5-6.0); WHITE BLOOD COUNT (AUTO) 11.6 K/uL (4.3-11.0)
[2018-01-18 08:16] LABS: BASOPHILS # (AUTO) 0.1 /CMM (0.0-0.2); BASOPHILS % (AUTO) 0.8 % (0.0-2.0); EOSINOPHILS % (AUTO) 6.2 % (0.0-6.0); LYMPHOCYTES # (AUTO) 2.7 /CMM (0.8-4.8); LYMPHOCYTES % (AUTO) 23.1 % (20.0-44.0); MEAN CORPUSCULAR HGB CONC 32 g/dl (31.0-36.0); MONOCYTES # (AUTO) 1.6 /CMM (0.1-1.30); MONOCYTES % (AUTO) 13.7 % (2.0-12.0); NEUTROPHILS # (AUTO) 6.5 /CMM (1.8-8.9); NEUTROPHILS % (AUTO) 56.2 % (43.0-81.0); PLATELET COUNT (AUTO) 374 /CMM (150-450); RDW COEFFICIENT OF VARIATION 24.4 (11.5-15.0)
[2018-01-18 08:33] LABS: ALBUMIN 3.4 g/dL (3.4-5.0); BILIRUBIN,TOTAL 0.6 mg/dL (0.2-1.0); CALCIUM, SERUM 8.3 mg/dL (8.5-10.1); CREATININE 0.9 mg/dL (0.6-1.3); MAGNESIUM 2.7 mg/dL (1.8-2.4); PHOSPHORUS 3.9 mg/dL (2.5-4.9); POTASSIUM 3.4 mmol/L (3.5-5.1); TOTAL PROTEIN, SERUM 8.6 g/dL (6.4-8.2)
[2018-01-18 09:09] LABS: THYROID STIMULATING HORMONE 5.346 uIU/mL (0.358-3.74)
[2018-01-18] MEDS ORDERED: POTASSIUM CHLORIDE 20 MEQ TAB.PRT.SR PO ONE (11:00)
--- NOTE | 2018-01-18 11:49 | NUR ---
MS RN NOTE PATIENT'S POTASSIUM 3.4 REPLACED WITH K-DUR 20 MEQ X1 NOW. AWARE. ORDERS NOTED AND CARRIED OUT. WILL ENDORSE TO ACCOUNTING METHODS ANALYST NURSE
[2018-01-18 16:00] VITALS: BP 142/101
--- NOTE | 2018-01-18 18:10 | NUR ---
MS RN NOTE WENT TO CHECK ON PATIENT WHEN ANOTHER NURSE INFORMED ME THAT PATIENT HAS BEEN IN THE RESTROOM FOR QUITE SOME TIME. WHEN KNOCKING ON THE DOOR PATIENT STATED HE WAS "TRYING TO HAVE A BOWEL MOVEMENT AND WAS STRUGGLING. THIRTY MINUTES LATER PATIENT WAS STILL IN BATHROOM, TABLE GAMES SHIFT MANAGER AND I KNOCKED ON DOOR AND OPENED THE DOOR WHEN WE BOTH NOTICED PATIENT HAD CONTRABAND IN HIS POCKET. WHEN ASKING PATIENT WHAT HE HAD, HE SAID " ITS JUST A LITTLE BIT OF WEED". EXPLAINED TO PATIENT THE RISKS OF HAVING CONTRABAND WHILE IN HOSPITAL. INFORMED CHARGE NURSE ABOUT THE SITUATION WITH PATIENT. PATIENT KEPT STATING " HE IS SORRY FOR BRINGING IT IN". NOTIFIED BALBINA VERDIN DNP. BALBINA SPOKE WITH PATIENT AT THE BEDSIDE.
--- NOTE | 2018-01-18 19:20 | NUR ---
ms rn closing note patient is eating dinner at this time. awaiting to be discharged. all nursing care needs attended to as needed. all due medications given as ordered. all discharge instructions given to patient at bedside, patient able to repeat back instructions. prescription with patient, he stated " i want the prescription with me". ambulatory, skin intact. iv removed, no redness or swelling. all belongings accounted for with patient at bedside. will endorse to rn shift mgr nurse for isabelle and discharging
== END 2018-01-18 19:45 | disposition home or self-care (01) | DRG 241 ==
LOC: ER 08:49 → TELE2 11:22 → TELE 12:07 → MED 01-18 09:05
PROVIDERS: ADMIT Nurse Practitioner Acute Care; ATTEND Nurse Practitioner Acute Care
DX: K29.70 Gastritis, unspecified, without bleeding (principal); K85.90 Acute pancreatitis without necrosis or infection, unspecified; R45.851 Suicidal ideations; K70.9 Alcoholic liver disease, unspecified; E87.1 Hypo-osmolality and hyponatremia; K86.1 Other chronic pancreatitis; D62 Acute posthemorrhagic anemia; I10 Essential (primary) hypertension; F31.9 Bipolar disorder, unspecified; F17.200 Nicotine dependence, unspecified, uncomplicated; F11.90 Opioid use, unspecified, uncomplicated; Z79.899 Other long term (current) drug therapy; F10.280 Alcohol dependence with alcohol-induced anxiety disorder; Y90.0 Blood alcohol level of less than 20 mg/100 ml; E87.6 Hypokalemia; K20.9 Esophagitis, unspecified; K57.30 Diverticulosis of large intestine without perforation or abscess without bleeding; K64.8 Other hemorrhoids
CPT/HCPCS: 36415; 71045-TC; 80048-TC; 80053-TC; 80061-TC; 80076-TC; 80305; 82272-TC; 83690-TC; 83735-TC; 84100-TC; 84443-TC; 84484-TC; 85025-TC; 85730-TC; 86850-TC; 86921-TC; 87081-TC; 93307-TC; A4606; G0480; J2060; J2405; J3475; J3480; J3490; J7030; J7050; P9016-BL; Z7610

== ENCOUNTER 2019-01-23 23:32 | Emergency (ER) | payer OTHER ==
[~2019-01-23] VITALS: Ht 182.9 cm; Wt 83.9 kg
--- NOTE | 2019-01-23 23:40 | NUR ---
PT [id number] FROM HOME C/O ABD PAIN X 5 DAYS, DENIES N/V/D. PT ON MONITOR IN BED 13. PT AOX4. PT STATES "I HAD PANCREATITIS". NAD NOTED. RESP EVEN AND UNLABORED. WILL CONTINUE TO MONITOR.
--- NOTE | 2019-01-24 01:22 | NUR ---
AT BEDSIDE FOR EVAL
[2019-01-24] MEDS ORDERED: MAG HYDROX/AL HYDROX/SIMETH 30 ML UDC ONE (01:28)
[2019-01-24] MEDS ORDERED: LIDOCAINE VISCOUS 2% UD 15 ML UDC ONE (01:28)
[2019-01-24] MEDS ORDERED: LIDOCAINE VISCOUS 2% UD 15 ML UDC MM ONE (01:30)
[2019-01-24] MEDS ORDERED: MAG HYDROX/AL HYDROX/SIMETH 30 ML UDC PO ONE (01:30)
--- NOTE | 2019-01-24 01:32 | NUR ---
PHLEB AT BEDSIDE FOR BLOOD DRAW
[2019-01-24 01:41] LABS: BASOPHILS # (AUTO) 0.1 /CMM (0.0-0.2); EOSINOPHILS % (AUTO) 0.2 % (0.0-6.0); HEMATOCRIT 49 % (39-51); HEMOGLOBIN 17.3 g/dL (13.5-17.5); LYMPHOCYTES # (AUTO) 2.4 /CMM (0.8-4.8); LYMPHOCYTES % (AUTO) 34.4 % (20.0-44.0); MEAN CORPUSCULAR HGB CONC 36 g/dl (31.0-36.0); MEAN CORPUSCULAR VOLUME 86 fL (80-96); MONOCYTES # (AUTO) 0.5 /CMM (0.1-1.30); MONOCYTES % (AUTO) 6.9 % (2.0-12.0); NEUTROPHILS # (AUTO) 3.9 /CMM (1.8-8.9); NEUTROPHILS % (AUTO) 57.5 % (43.0-81.0); PLATELET COUNT (AUTO) 376 /CMM (150-450); RED BLOOD CELL COUNT(AUTO) 5.65 MIL/uL (4.5-6.0); WHITE BLOOD COUNT (AUTO) 6.8 K/uL (4.3-11.0)
[2019-01-24 01:46] LABS: CALCIUM, SERUM 9.3 mg/dL (8.5-10.1); CREATININE 0.8 mg/dL (0.6-1.3); POTASSIUM 3.8 mmol/L (3.5-5.1)
[2019-01-24 01:52] LABS: ALBUMIN 4.4 g/dL (3.4-5.0); BILIRUBIN,DIRECT 0.3 mg/dL (0.0-0.2); BILIRUBIN,TOTAL 1.1 mg/dL (0.2-1.0); TOTAL PROTEIN, SERUM 9.3 g/dL (6.4-8.2)
[2019-01-24] MEDS ORDERED: SUCRALFATE 1 G/10 ML UDC ONE (02:45)
[2019-01-24] MEDS ORDERED: SUCRALFATE 1 G/10 ML UDC PO ONE (03:00)
--- NOTE | 2019-01-24 03:16 | NUR ---
Patient is resting comfortably in bed with eyes closed. Easily aroused. VSS.
[2019-01-24] MEDS ORDERED: LORAZEPAM 1 MG TABLET ONE (04:58)
[2019-01-24] MEDS ORDERED: LORAZEPAM 1 MG TABLET PO ONE ×2 (05:00→09:30)
--- NOTE | 2019-01-24 05:06 | NUR ---
URINE COLLECTED AND SENT TO LAB
[2019-01-24 05:31] LABS: ALCOHOL, BLOOD 291 mg/dL (0-0)
[2019-01-24 05:35] LABS: ACETAMINOPHEN 0 ug/ml (10-30)
[2019-01-24] MEDS ORDERED: PANTOPRAZOLE 40 MG TABLET.DR PO ONE ×2 (07:00→07:01)
--- NOTE | 2019-01-24 07:20 | NUR ---
DIVINE GILLIAM AT FOR EVAL.
--- NOTE | 2019-01-24 07:24 | NUR ---
REPORT GIVEN TO RK AYON FOR HEMA
--- NOTE | 2019-01-24 08:00 | NUR ---
Patient is resting comfortably in bed. VSS.
[2019-01-24] MEDS ORDERED: LORAZEPAM 0.5 MG TABLET ONE (09:25)
--- NOTE | 2019-01-24 09:30 | NUR ---
Family at BS.
[2019-01-24] MEDS ORDERED: ONDANSETRON 4 MG TAB.RAPDIS ONE (10:50)
[2019-01-24] MEDS ORDERED: ONDANSETRON 4 MG TAB.RAPDIS SL ONE (11:00)
--- NOTE | 2019-01-24 11:40 | NUR ---
CALLED [employer] GRIEVANCE AND APPEALS SPECIALIST INTERFACE CONTROL OFFICER ETA 1 HR
[2019-01-24] MEDS ORDERED: ONDANSETRON HCL/PF 4 MG/2 ML VIAL ONE (11:54)
[2019-01-24] MEDS ORDERED: IV NS 0.9% 1,000 ML BAG IV ONE (12:00)
[2019-01-24] MEDS ORDERED: ONDANSETRON HCL/PF 4 MG/2 ML VIAL IVP ONE (12:00)
[2019-01-24] MEDS ORDERED: diphenhydrAMINE HCL 50 MG/ML VIAL ONE (12:12)
[2019-01-24] MEDS ORDERED: diphenhydrAMINE HCL 50 MG/ML VIAL IV ONE (12:30)
--- NOTE | 2019-01-24 12:30 | NUR ---
SHANTELL MURPHY SR, FATHER, CONTACT INFO: [phone]
[2019-01-24] MEDS ORDERED: METOCLOPRAMIDE HCL 10 MG/2 ML VIAL ONE (12:37)
[2019-01-24] MEDS ORDERED: LORAZEPAM INJ 2 MG/ML VIAL ONE ×2 (12:38→14:42)
[2019-01-24] MEDS ORDERED: METOCLOPRAMIDE HCL 10 MG/2 ML VIAL IV ONE (13:00)
[2019-01-24] MEDS ORDERED: LORAZEPAM INJ 2 MG/ML VIAL IV ONE ×2 (13:00→14:30)
[2019-01-24] MEDS ORDERED: ZOLP10TA6 PO (14:40)
[2019-01-24] MEDS ORDERED: ONDA4TAB10 PO (14:40)
[2019-01-24] MEDS ORDERED: PANT40TA4 PO (14:40)
[2019-01-24] MEDS ORDERED: LORA1TAB PO (14:40)
[2019-01-24] MEDS ORDERED: HYDR-3980 PO (14:40)
--- NOTE | 2019-01-24 14:42 | NUR ---
spoke with demi ortega, will call back for to report, dr burnette will be calling to speak with guero rojas
--- NOTE | 2019-01-24 15:10 | NUR ---
Patient is resting comfortably in bed with eyes closed. Easily aroused. VSS
[2019-01-24 15:11] VITALS: BP 98/68
--- NOTE | 2019-01-24 16:31 | NUR ---
[facility] ADMIT TO [address] ELENA, RN FOR REPORT [phone] ROYAL[facility] AMB [id number] ETA
--- NOTE | 2019-01-24 17:29 | NUR ---
Report given to RK Pike for HEMA going to [facility].
--- NOTE | 2019-01-24 17:38 | NUR ---
Patient discharged to [facility] going to [facility] in stable condition. Written and verbal after care instructions given. Patient verbalizes understanding of instruction.
== END 2019-01-24 17:46 | disposition short-term general hospital (02) ==
LOC: ER 23:34
DX: K86.1 Other chronic pancreatitis (principal); F10.129 Alcohol abuse with intoxication, unspecified; I10 Essential (primary) hypertension; F32.9 Major depressive disorder, single episode, unspecified; F17.210 Nicotine dependence, cigarettes, uncomplicated; Z60.2 Problems related to living alone
CPT/HCPCS: 36415; 76705; 80048; 80076; 80305; 80307 ×2; 80329; 83690; 85025; 96374; 96375; 96376; 99285; A4216; G0480; J1200; J2060 ×2; J2405; J2765; J7030; Q0162

== ENCOUNTER 2019-02-23 14:27 | Emergency (ER) | payer OTHER ==
[~2019-02-23] VITALS: Ht 182.9 cm; Wt 80.7 kg
[~2019-02-23 14:27] MED LIST changes: +HYDR-3980 PO; -LITH600C PO; +LORA1TAB PO; +ONDA4TAB10 PO; +PANT40TA4 PO; -QUET400T PO; +ZOLP10TA6 PO
--- NOTE | 2019-02-23 14:33 | NUR ---
PT KELSEY FROM [facility] FOR S/I, PT AAOX4, PT AMBULATORY, VSS, NAD NOTED, PENDING MD MARIE
[2019-02-23 14:58] LABS: BASOPHILS # (AUTO) 0.1 /CMM (0.0-0.2); BASOPHILS % (AUTO) 0.5 % (0.0-2.0); EOSINOPHILS % (AUTO) 0.4 % (0.0-6.0); HEMATOCRIT 41 % (39-51); HEMOGLOBIN 14.3 g/dL (13.5-17.5); LYMPHOCYTES # (AUTO) 0.7 /CMM (0.8-4.8); LYMPHOCYTES % (AUTO) 5.8 % (20.0-44.0); MEAN CORPUSCULAR HGB CONC 35 g/dl (31.0-36.0); MEAN CORPUSCULAR VOLUME 90 fL (80-96); MONOCYTES # (AUTO) 1.2 /CMM (0.1-1.30); MONOCYTES % (AUTO) 9.9 % (2.0-12.0); NEUTROPHILS # (AUTO) 9.9 /CMM (1.8-8.9); NEUTROPHILS % (AUTO) 83.4 % (43.0-81.0); PLATELET COUNT (AUTO) 283 /CMM (150-450); RED BLOOD CELL COUNT(AUTO) 4.58 MIL/uL (4.5-6.0); WHITE BLOOD COUNT (AUTO) 11.9 K/uL (4.3-11.0)
[2019-02-23] MEDS ORDERED: IV NS 0.9% 500 ML BAG IV ONE (15:00)
[2019-02-23] MEDS ORDERED: ONDANSETRON HCL/PF 4 MG/2 ML VIAL IVP ONE (15:00)
[2019-02-23] MEDS ORDERED: ASPIRIN 325 MG TABLET PO ONE (15:00)
[2019-02-23 15:06] LABS: CALCIUM, SERUM 8.6 mg/dL (8.5-10.1); CARBON DIOXIDE 27 mmol/L (21-32); CHLORIDE 105 mmol/L (98-107); CREATININE 0.8 mg/dL (0.6-1.3); GLUCOSE 95 mg/dL (74-106); POTASSIUM 3.2 mmol/L (3.5-5.1); SODIUM SERUM 145 mmol/L (136-145); UREA NITROGEN, BLOOD 15 mg/dL (7-18)
[2019-02-23 15:11] LABS: ALANINE AMINOTRANSFERASE 30 U/L (12-78); ALBUMIN 4.1 g/dL (3.4-5.0); ALCOHOL, BLOOD 245 mg/dL (0-0); ALKALINE PHOSPHATASE 130 U/L (46-116); ASPARTATE AMINOTRANSFERASE 38 U/L (15-37); BILIRUBIN,DIRECT 0.1 mg/dL (0.0-0.2); BILIRUBIN,TOTAL 0.4 mg/dL (0.2-1.0); SALICYLATE 2.9 mg/dL (2.8-20.0); TOTAL PROTEIN, SERUM 8.3 g/dL (6.4-8.2)
[2019-02-23 15:12] LABS: ACETAMINOPHEN 0 ug/ml (10-30)
[2019-02-23] MEDS ORDERED: ASPIRIN 325 MG TABLET ONE (15:20)
[2019-02-23] MEDS ORDERED: ONDANSETRON HCL/PF 4 MG/2 ML VIAL ONE (15:20)
[2019-02-23 15:32] LABS: APPEARANCE,URINE Slightly Cloudy (CLEAR); BILIRUBIN,URINE SMALL (NEGATIVE); BLOOD, URINE Trace-lysed Ery/uL (NEGATIVE); COLOR,URINE Yellow (YELLOW); KETONES,URINE 15 (NEGATIVE); LEUKOCYTE ESTERASE ,URINE Negative (NEGATIVE); NITRITE, URINE Negative (NEGATIVE); PROTEIN,URINE 100 mg/dl (NEGATIVE); UGLUCOSE Negative (NEGATIVE); UROBILINOGEN,URINE 0.2 EU/dL (0.2)
[2019-02-23] MEDS ORDERED: LORAZEPAM 1 MG TABLET ONE (15:41)
[2019-02-23 15:46] LABS: WBC,URINE 0-2 /HPF (0-3)
[2019-02-23 15:47] LABS: BACTERIA,URINE Few /HPF (None Seen); RBC,URINE 0-2 /HPF (0-2); SQUAMOUS EPITHELIAL CELL,UR Rare /HPF (None Seen)
[2019-02-23 15:48] LABS: URINE AMORPHOUS URATE Moderate /HPF (None Seen)
[2019-02-23] MEDS ORDERED: LORAZEPAM 1 MG TABLET PO ONE (16:00)
[2019-02-23] MEDS ORDERED: POTASSIUM CHLORIDE 20 MEQ TAB.PRT.SR PO ONE ×2 (16:00→16:02)
[2019-02-23] MEDS ORDERED: MAGNESIUM CHLORIDE 64 MG TABLET.SA PO SCH (16:30)
--- NOTE | 2019-02-23 18:20 | NUR ---
CLINICAL TRIAL ASSISTANT ASHLEY ETA 1 HR
--- NOTE | 2019-02-23 21:01 | NUR ---
TRANSFER INFO: DR COLUNGA ACCEPTED PT AT [facility], RN FOR REPORT
[2019-02-23 21:10] VITALS: BP 132/79
--- NOTE | 2019-02-23 21:13 | NUR ---
[facility] called for transport. ETA 30 min. Trip [id number]
--- NOTE | 2019-02-23 21:56 | NUR ---
PT TRANSPORTED TO [facility] VIA PRIVATE AMBULANCE, PT LEFT IN STABLE CONDITION, PT ON A VOLUNTARY BASIS, PT AAOX4, NAD NOTED, VSS. REPORT WAS GIVEN TO PHANI NURSE AT [facility], REPORT GIVEN TO AMBULANCE STAFF.
== END 2019-02-23 22:01 ==
LOC: ER 14:27
DX: R07.89 Other chest pain (principal); R45.851 Suicidal ideations; I10 Essential (primary) hypertension; F17.210 Nicotine dependence, cigarettes, uncomplicated; Z59.0 Homelessness; Z79.899 Other long term (current) drug therapy
CPT/HCPCS: 36415; 71045; 80048; 80076; 80305; 80307; 80329; 81001; 83735; 84484 ×2; 85025; 93005 ×2; 96374; 99285; G0480; J2405; J7040; 81000-TC

== ENCOUNTER 2019-05-07 12:26 | Emergency (ER) | payer OTHER ==
[~2019-05-07] VITALS: Ht 177.8 cm; Wt 77.1 kg
--- NOTE | 2019-05-07 12:26 | NUR ---
PT BIB RA 860,C/O GENERALIZED WEAKNESS, ALCOHOL WITHDRAWAL PER PARAMEDICS REPORT, PT IS AAOX4, NOT IN RESPIRATORY DISTRESS, HOOKED TO MONITOR, KEPT RESTED AND COMFORTABLE, WILL CONTINUE TO MONITOR.
--- NOTE | 2019-05-07 13:42 | NUR ---
SEEN AND EXAMINED BY NERIS CARCAMO
[2019-05-07] MEDS ORDERED: FOLIC ACID 1 MG TABLET ONE (13:50)
[2019-05-07] MEDS ORDERED: THIAMINE HCL 100 MG TABLET ONE (13:50)
[2019-05-07] MEDS ORDERED: LORAZEPAM INJ 2 MG/ML VIAL ONE (13:51)
[2019-05-07] MEDS ORDERED: FOLIC ACID 1 MG TABLET PO ONE (14:00)
[2019-05-07] MEDS ORDERED: THIAMINE HCL 100 MG TABLET PO ONE (14:00)
[2019-05-07] MEDS ORDERED: LORAZEPAM INJ 2 MG/ML VIAL IV ONE (14:00)
[2019-05-07] MEDS ORDERED: IV NS 0.9% 1,000 ML BAG IV ONE (14:00)
--- NOTE | 2019-05-07 14:10 | NUR ---
IV LINE ESTABLISHED, BLOOD DRAWNED AND SENT TO LAB.
[2019-05-07 14:11] LABS: BASOPHILS # (AUTO) 0.1 /CMM (0.0-0.2); BASOPHILS % (AUTO) 0.8 % (0.0-2.0); EOSINOPHILS % (AUTO) 0.3 % (0.0-6.0); HEMATOCRIT 42 % (39-51); HEMOGLOBIN 14.6 g/dL (13.5-17.5); LYMPHOCYTES # (AUTO) 1.6 /CMM (0.8-4.8); LYMPHOCYTES % (AUTO) 22.2 % (20.0-44.0); MEAN CORPUSCULAR HGB CONC 35 g/dl (31.0-36.0); MEAN CORPUSCULAR VOLUME 91 fL (80-96); MONOCYTES # (AUTO) 0.6 /CMM (0.1-1.30); MONOCYTES % (AUTO) 8.3 % (2.0-12.0); NEUTROPHILS % (AUTO) 68.4 % (43.0-81.0); PLATELET COUNT (AUTO) 252 /CMM (150-450); WHITE BLOOD COUNT (AUTO) 7.3 K/uL (4.3-11.0)
[2019-05-07 14:13] LABS: CALCIUM, SERUM 9.1 mg/dL (8.5-10.1); CREATININE 0.9 mg/dL (0.6-1.3); POTASSIUM 3.6 mmol/L (3.5-5.1)
[2019-05-07 14:20] LABS: ALBUMIN 3.8 g/dL (3.4-5.0); BILIRUBIN,DIRECT 0.2 mg/dL (0.0-0.2); BILIRUBIN,TOTAL 0.8 mg/dL (0.2-1.0); TOTAL PROTEIN, SERUM 8.4 g/dL (6.4-8.2)
[2019-05-07] MEDS ORDERED: MECLIZINE HCL 12.5 MG TABLET ONE (16:54)
[2019-05-07] MEDS ORDERED: MECLIZINE HCL 12.5 MG TABLET PO ONE (17:00)
--- NOTE | 2019-05-07 17:14 | NUR ---
PT IS WHEELED TO CT SCAN VIA [facility].
--- NOTE | 2019-05-07 18:36 | NUR ---
IV removed. Catheter intact and site benign. Pressure and 4x4 applied to site. No bleeding noted. Patient discharged to home in stable condition. Written and verbal after care instructions given. Patient verbalizes understanding of instruction.
[2019-05-07 18:37] VITALS: BP 108/71
== END 2019-05-07 18:39 | disposition home or self-care (01) ==
LOC: ER 12:28
DX: F10.239 Alcohol dependence with withdrawal, unspecified (principal); R53.1 Weakness; F32.9 Major depressive disorder, single episode, unspecified; R42 Dizziness and giddiness; I10 Essential (primary) hypertension; F17.210 Nicotine dependence, cigarettes, uncomplicated; Z60.2 Problems related to living alone; Z79.899 Other long term (current) drug therapy; Y90.9 Presence of alcohol in blood, level not specified
CPT/HCPCS: 36415; 70450; 80048; 80076; 83690; 85025; 96361; 96374; 99284; J2060; J7030; J8597